=== PATIENT | male | born 1960 | race African-American/Black ===

== ENCOUNTER 2016-06-13 19:04 | Inpatient (IN) | payer SELFPAY ==
[~2016-06-13] VITALS: Ht 182.9 cm; Wt 78.9 kg
[2016-06-13] MEDS ORDERED: IV SET PRIMARY 1 EA INFUS.SET MC ONE (19:25)
[2016-06-13] MEDS ORDERED: IV NS 0.9% 500 ML IV ONE (19:25)
[2016-06-13 19:27] LABS: BASOPHILS # (AUTO) 0.1 /CMM (0.0-0.2); BASOPHILS % (AUTO) 0.5 % (0.0-2.0); DIFF TOTAL % 100 %; EOSINOPHILS % (AUTO) 0.1 % (0.0-6.0); HEMATOCRIT 44 % (39-51); HEMOGLOBIN 14.7 g/dL (13.5-17.5); LYMPHOCYTES % (AUTO) 8.6 % (20.0-44.0); MEAN CORPUSCULAR HEMOGLOBIN 30 PG (26.0-33.0); MEAN CORPUSCULAR HGB CONC 34 g/dl (31.0-36.0); MEAN CORPUSCULAR VOLUME 89 fL (80-96); MONOCYTES # (AUTO) 0.9 /CMM (0.1-1.30); MONOCYTES % (AUTO) 7.7 % (2.0-12.0); NEUTROPHILS # (AUTO) 9.9 /CMM (1.8-8.9); NEUTROPHILS % (AUTO) 83.1 % (43.0-81.0); PLATELET COUNT (AUTO) 154 /CMM (150-450); RED BLOOD CELL COUNT(AUTO) 4.96 MIL/uL (4.5-6.0); WHITE BLOOD COUNT (AUTO) 11.9 K/uL (4.3-11.0)
[2016-06-13] MEDS ORDERED: IV NS 0.9% 500 ML BAG IV ONE (19:30)
[2016-06-13 19:37] LABS: ANION GAP 14 (5-14); CALCIUM, SERUM 7.8 mg/dL (8.5-10.1); CARBON DIOXIDE 25 mmol/L (21-32); CHLORIDE 92 mmol/L (98-107); CREATININE 1.4 mg/dL (0.6-1.3); GFR 52 mL/min (>60); GLUCOSE 120 mg/dL (74-106); POTASSIUM 3.1 mmol/L (3.5-5.1); SODIUM SERUM 127 mmol/L (136-145); UREA NITROGEN, BLOOD 15 mg/dL (7-18)
[2016-06-13 19:41] LABS: INR 1.04 (0.87-1.13); PROTHROMBIN TIME 10.9 SECS (9.5-12.7)
[2016-06-13 19:43] LABS: ALANINE AMINOTRANSFERASE 92 U/L (12-78); ALBUMIN 3.3 g/dL (3.4-5.0); ASPARTATE AMINOTRANSFERASE 246 U/L (15-37); BILIRUBIN,DIRECT 0.5 mg/dL (0.0-0.2); BILIRUBIN,TOTAL 1.6 mg/dL (0.2-1.0); INDIRECT BILIRUBIN 1.1 mg/dL (0.0-1.1); TOTAL PROTEIN, SERUM 7.5 g/dL (6.4-8.2)
[2016-06-13 19:44] LABS: ACETAMINOPHEN 0 ug/ml (10-30); SALICYLATE < 2.0 mg/dL (2.8-20.0)
[2016-06-13 20:00] LABS: THYROID STIMULATING HORMONE 2.736 uIU/mL (0.358-3.74)
[2016-06-13] MEDS ORDERED: GUAI480S10 PO (21:38)
[2016-06-13] MEDS ORDERED: MULT1CAP34 PO (21:38)
[2016-06-13] MEDS ORDERED: TRAM50TA2 PO (21:38)
[2016-06-13] MEDS ORDERED: ELVI1TAB3 PO (21:38)
[2016-06-13] MEDS ORDERED: DIPH50CA37 PO (21:38)
[2016-06-13] MEDS ORDERED: OMEP40CA37 PO (21:38)
[2016-06-13] MEDS ORDERED: TEMA15CA PO (21:38)
[2016-06-13] MEDS ORDERED: CALC-272 PO (21:38)
[2016-06-13] MEDS ORDERED: FAMO20TA8 PO (21:38)
[2016-06-13] MEDS ORDERED: DICL100T2 PO (21:38)
[2016-06-13] MEDS ORDERED: PSEU-231 PO (21:38)
[2016-06-13] MEDS ORDERED: TADA5TAB2 PO (21:38)
[2016-06-13] MEDS ORDERED: PIPERACILLIN /TAZOBACTAM 3.375 G in IV D5W 50 ML IV ONE (22:00)
[2016-06-13] MEDS ORDERED: ONDANSETRON HCL/PF 4 MG/2 ML VIAL IVP PRN (22:00)
[2016-06-13] MEDS ORDERED: Z GUARD REMEDY 2 OZ OINT TP PRN (22:00)
[2016-06-13] MEDS ORDERED: LEVOFLOXACIN 750 MG /D5W 150ML 150 ML IV ONE ×2 (22:00→22:05)
[2016-06-13] MEDS ORDERED: ZOLPIDEM TARTRATE 5 MG TABLET PO PRN (22:00)
[2016-06-13] MEDS ORDERED: MAG HYDROX/AL HYDROX/SIMETH 30 ML UDC PO PRN (22:00)
[2016-06-13] MEDS ORDERED: MAGNESIUM HYDROXIDE 30 ML UDC PO PRN (22:00)
[2016-06-13] MEDS ORDERED: PIPERACILLIN /TAZOBACTAM 3.375 G VIAL IV ONE (22:04)
[2016-06-13] MEDS ORDERED: IV NS 0.9% 50 ML IV ONE (22:05)
[2016-06-13] MEDS ORDERED: IV SET PRIMARY PUMP SET 1 EA INFUS.SET MC ONE (22:05)
[2016-06-13 22:30] VITALS: BP 123/66
[2016-06-14] VITALS: BP 118/76
[2016-06-14] MEDS ORDERED: IV NS 0.9% 1,000 ML ONE (01:38)
[2016-06-14] MEDS ORDERED: IV SET PRIMARY PUMP SET 1 EA INFUS.SET MC ONE (01:38)
[2016-06-14] MEDS: IV NS 0.9% 1,000 ML IV PRN ×2 (01:48→17:17)
[2016-06-14 04:00] VITALS: BP_SYST 109; BP_SYST 110; BP_DIAS 64; BP_DIAS 74
[2016-06-14 07:06] LABS: ALBUMIN 2.7 g/dL (3.4-5.0); BILIRUBIN,DIRECT 0.3 mg/dL (0.0-0.2); BILIRUBIN,TOTAL 0.9 mg/dL (0.2-1.0); CALCIUM, SERUM 7.6 mg/dL (8.5-10.1); INDIRECT BILIRUBIN 0.6 mg/dL (0.0-1.1); PHOSPHORUS 2.7 mg/dL (2.5-4.9); POTASSIUM 3.6 mmol/L (3.5-5.1); TOTAL PROTEIN, SERUM 6.6 g/dL (6.4-8.2)
[2016-06-14 07:10] LABS: BASOPHILS % (AUTO) 0.1 % (0.0-2.0); DIFF TOTAL % 100 %; EOSINOPHILS # (AUTO) 0.1 /CMM (0.0-0.7); EOSINOPHILS % (AUTO) 0.7 % (0.0-6.0); HEMATOCRIT 41 % (39-51); HEMOGLOBIN 13.8 g/dL (13.5-17.5); LYMPHOCYTES # (AUTO) 0.9 /CMM (0.8-4.8); LYMPHOCYTES % (AUTO) 9.8 % (20.0-44.0); MEAN CORPUSCULAR HEMOGLOBIN 30 PG (26.0-33.0); MEAN CORPUSCULAR HGB CONC 34 g/dl (31.0-36.0); MEAN CORPUSCULAR VOLUME 89 fL (80-96); MONOCYTES # (AUTO) 0.6 /CMM (0.1-1.30); MONOCYTES % (AUTO) 5.7 % (2.0-12.0); NEUTROPHILS % (AUTO) 83.7 % (43.0-81.0); PLATELET COUNT (AUTO) 138 /CMM (150-450); RED BLOOD CELL COUNT(AUTO) 4.64 MIL/uL (4.5-6.0); WHITE BLOOD COUNT (AUTO) 9.6 K/uL (4.3-11.0)
[2016-06-14 08:00] VITALS: BP 99/65
[2016-06-14] MEDS ORDERED: Medication Not On Formulary EA (Omeprazole 1 CAP) PO SCH (09:00)
[2016-06-14] MEDS ORDERED: FEE PK DOSING 1 MIN EA MC ONE (09:22)
[2016-06-14] MEDS ORDERED: VANCOMYCIN 1.25 GM in IV D5W 500 ML IV SCH (10:00)
[2016-06-14] MEDS ORDERED: SECONDARY IV SET 1 EA INFUS.SET MC ONE ×2 (10:26→13:18)
[2016-06-14] MEDS: PANTOPRAZOLE 40 MG TABLET.DR PO SCH (10:27)
[2016-06-14] MEDS: MULTIVITAMINS,THERAPEUTIC 1 UDTAB TABLET PO SCH (10:27)
[2016-06-14] MEDS: CALCIUM CARB 250MG /VITAMIN D 1 UDTAB PO SCH (10:27)
[2016-06-14] MEDS: PIPERACILLIN /TAZOBACTAM 3.375 G in IV D5W 50 ML IV SCH ×2 (12:46→17:15)
[2016-06-14 16:00] VITALS: BP_SYST 107; BP_SYST 99; BP_DIAS 65; BP_DIAS 66
[2016-06-14] MEDS: NEOMY SULF/BACITRAC ZN/POLY 15 GM TUBE TP SCH (18:22)
[2016-06-14] MEDS: FLUCONAZOLE (100 MG) 100 MG TABLET PO SCH (18:22)
[2016-06-14] MEDS: NYSTATIN (PYXIS) 500,000 UNIT/5 ML ORAL.SUSP PO SCH (18:22)
[2016-06-14] MEDS: LEVOFLOXACIN (500MG) 500 MG TABLET PO SCH (18:23)
[2016-06-14 20:00] VITALS: BP 114/68
[2016-06-14 23:14] VITALS: BP 114/68
[2016-06-15] MEDS: IV NS 0.9% 1,000 ML IV PRN (02:24)
[2016-06-15 06:29] LABS: BASOPHILS % (AUTO) 0.3 % (0.0-2.0); DIFF TOTAL % 100 %; HEMATOCRIT 41 % (39-51); HEMOGLOBIN 13.8 g/dL (13.5-17.5); LYMPHOCYTES # (AUTO) 1.1 /CMM (0.8-4.8); MEAN CORPUSCULAR HEMOGLOBIN 30 PG (26.0-33.0); MEAN CORPUSCULAR HGB CONC 33 g/dl (31.0-36.0); MEAN CORPUSCULAR VOLUME 89 fL (80-96); MONOCYTES # (AUTO) 1.1 /CMM (0.1-1.30); MONOCYTES % (AUTO) 10.8 % (2.0-12.0); NEUTROPHILS % (AUTO) 77.9 % (43.0-81.0); PLATELET COUNT (AUTO) 166 /CMM (150-450); RED BLOOD CELL COUNT(AUTO) 4.64 MIL/uL (4.5-6.0); WHITE BLOOD COUNT (AUTO) 10.3 K/uL (4.3-11.0)
[2016-06-15 07:02] LABS: CALCIUM, SERUM 7.3 mg/dL (8.5-10.1); CREATININE 0.8 mg/dL (0.6-1.3); POTASSIUM 3.2 mmol/L (3.5-5.1)
[2016-06-15] MEDS: PANTOPRAZOLE 40 MG TABLET.DR PO SCH (07:51)
[2016-06-15 08:00] VITALS: BP 112/64
[2016-06-15 08:14] VITALS: BP 112/64
[2016-06-15 08:16] LABS: *BANDS 12 % (Not Estab.)
[2016-06-15] MEDS: MULTIVITAMINS,THERAPEUTIC 1 UDTAB TABLET PO SCH (09:25)
[2016-06-15] MEDS: NYSTATIN (PYXIS) 500,000 UNIT/5 ML ORAL.SUSP PO SCH ×3 (09:25→16:53)
[2016-06-15] MEDS: FLUCONAZOLE (100 MG) 100 MG TABLET PO SCH (09:25)
[2016-06-15] MEDS: CALCIUM CARB 250MG /VITAMIN D 1 UDTAB PO SCH (09:25)
[2016-06-15] MEDS: POTASSIUM CHLORIDE 20 MEQ TAB.PRT.SR PO SCH ×2 (12:34→14:55)
[2016-06-15] MEDS: NEOMY SULF/BACITRAC ZN/POLY 15 GM TUBE TP SCH (14:55)
[2016-06-15] MEDS ORDERED: GUAIFENESIN/D-METHORPHAN HB 5 ML UDC PO PRN (15:30)
[2016-06-15 16:00] VITALS: BP 120/64
[2016-06-15] MEDS: LEVOFLOXACIN (500MG) 500 MG TABLET PO SCH (16:53)
== END 2016-06-15 18:03 | disposition home or self-care (01) | DRG 193 ==
LOC: ER 19:05 → TELE 20:19 → MED 06-14 08:54
PROVIDERS: ADMIT Internal Medicine; ATTEND Internal Medicine
DX: J15.9 Unspecified bacterial pneumonia (principal); N17.0 Acute kidney failure with tubular necrosis; E43 Unspecified severe protein-calorie malnutrition; G92 Toxic encephalopathy; E87.1 Hypo-osmolality and hyponatremia; B37.0 Candidal stomatitis; E87.6 Hypokalemia; E86.0 Dehydration; Z86.61 Personal history of infections of the central nervous system
CPT/HCPCS: 36415; 70450-TC; 71010-TC; 76700-TC; 80048-TC; 80074; 80076-TC; 82140-TC; 82962-TC; 83735-TC; 84100-TC; 84443-TC; 85025-TC; 85730-TC; 86360; 87081-TC; 87400; 97001-TC; 97116-TC; 97530-TC; A4216; A4606; G6038-TC; G6039-TC; G6040-TC; J1956; J2543; J3370; J7030; J7040; J7060; Z7610

== ENCOUNTER 2017-07-27 11:53 | Emergency (ER) | payer SELFPAY ==
[~2017-07-27] VITALS: Ht 170.2 cm; Wt 77.1 kg
[~2017-07-27 11:53] MED LIST: CALC-272 PO; DICL100T2 PO; DIPH50CA37 PO; ELVI1TAB3 PO; FAMO20TA8 PO; GUAI480S10 PO; MULT1CAP34 PO; OMEP40CA37 PO; PSEU-231 PO; TADA5TAB2 PO; TEMA15CA PO; TRAM50TA2 PO
[2017-07-27] MEDS ORDERED: IBUPROFEN 600 MG TABLET PO ONE ×2 (12:00→12:13)
[2017-07-27 12:48] VITALS: BP 117/83
== END 2017-07-27 12:50 | disposition home or self-care (01) ==
LOC: ER 11:54
DX: M25.552 Pain in left hip (principal); M25.551 Pain in right hip; M54.2 Cervicalgia; G03.9 Meningitis, unspecified; V19.69XA Unspecified pedal cyclist injured in collision with other motor vehicles in traffic accident, initial encounter; Y93.89 Activity, other specified; Y92.410 Unspecified street and highway as the place of occurrence of the external cause; Y99.8 Other external cause status
CPT/HCPCS: 72040; 72170; 99284; A4606; Z7610

== ENCOUNTER 2019-05-26 21:30 | Emergency (ER) | payer SELFPAY ==
[~2019-05-26] VITALS: Ht 182.9 cm; Wt 79.4 kg
[2019-05-26 21:30] VITALS: BP 130/75
[~2019-05-26 21:30] MED LIST changes: +OMEP40CA13 PO; -OMEP40CA37 PO; -PSEU-231 PO; +PSEU-298 PO
[2019-05-26 23:13] LABS: APPEARANCE,URINE Clear (CLEAR); BILIRUBIN,URINE Negative (NEGATIVE); BLOOD, URINE Trace-intact Ery/uL (NEGATIVE); COLOR,URINE Yellow (YELLOW); KETONES,URINE Negative (NEGATIVE); LEUKOCYTE ESTERASE ,URINE Negative (NEGATIVE); NITRITE, URINE Negative (NEGATIVE); PROTEIN,URINE Negative (NEGATIVE); UGLUCOSE Negative (NEGATIVE); UROBILINOGEN,URINE 0.2 EU/dL (0.2)
--- NOTE | 2019-05-26 23:19 | NUR ---
pt back from [place]
[2019-05-26 23:59] LABS: BACTERIA,URINE None seen /HPF (None Seen); RBC,URINE 0-2 /HPF (0-2); SQUAMOUS EPITHELIAL CELL,UR Few /HPF (None Seen); WBC,URINE 0-2 /HPF (0-3)
== END 2019-05-27 00:56 | disposition home or self-care (01) ==
LOC: ER 21:33
DX: R31.9 Hematuria, unspecified (principal); Z79.899 Other long term (current) drug therapy
CPT/HCPCS: 81000-TC